=== PATIENT | male | born 1970 | race Caucasian/White ===

== ENCOUNTER 2020-02-20 20:38 | Emergency (ER) | payer SELFPAY ==
[2020-02-20 20:39] VITALS: BP 164/98; BP 186/111; PULSE 86; PULSE 94; RESP 18; RESP 22; TEMP 36.4; O2SAT 97; O2SAT 98; BMI 28.3
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
[2020-02-20] MEDS: Diphth,Pertuss(Acell),Tet Vac 0.5 ML Vial IM (21:23)
[2020-02-20 22:02] VITALS: BP 164/102; PULSE 79; RESP 16; O2SAT 97
== END 2020-02-20 22:03 | disposition home or self-care (01) ==
LOC: ED 21:37
PROVIDERS: Emergency Provider Emergency Medicine; PCP Family Medicine
DX: S16.1XXA Strain of muscle, fascia and tendon at neck level, initial encounter (principal); S29.012A Strain of muscle and tendon of back wall of thorax, initial encounter; S01.112A Laceration without foreign body of left eyelid and periocular area, initial encounter; F10.129 Alcohol abuse with intoxication, unspecified; F17.200 Nicotine dependence, unspecified, uncomplicated; Z23 Encounter for immunization; V43.02XA Car driver injured in collision with other type car in nontraffic accident, initial encounter; Y93.I9 Activity, other involving external motion; Y92.89 Other specified places as the place of occurrence of the external cause; Y99.8 Other external cause status
CPT/HCPCS: 12011; 70450; 72072; 72125; 90471; 90715; 99284

== ENCOUNTER 2020-07-08 06:58 | Emergency (ER) | payer MEDICAID, SELFPAY ==
[2020-07-08 06:59] VITALS: BP 171/106; PULSE 139; RESP 18; TEMP 36.6; O2SAT 95; BMI 27.4
[2020-07-08] MEDS: Ondansetron ODT 4 MG Tablet 8 MG PO (07:22)
[2020-07-08] MEDS: morphine 8 MG/ML Syringe SC (07:23)
--- NOTE | 2020-07-08 07:35 | RAD_ITS ---
STUDY: X-RAY - LEFT SHOULDER REASON FOR EXAM: Left shoulder injury from a fall. TECHNIQUE: 2 view(s) of the shoulder. COMPARISON: None. FINDINGS: There is no obvious dislocation of the glenohumeral articulation. There is a small undersurface osteophyte of the distal clavicle. Normal acromion. There is a comminuted fracture of the proximal humerus with fracture of the greater tuberosity and surgical neck with anterior displacement of the humeral shaft. The soft tissue structures are unremarkable. Normal visualized pulmonary apex. RAD/Shoulder min 2 Views IMPRESSION: Displaced proximal humeral fracture. Electronically Signed: Chago Tierney MD at 8:15 EDT Tel , Service support ,
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
--- NOTE | 2020-07-08 08:14 | CT_ITS ---
STUDY: CT LEFT SHOULDER REASON FOR EXAM: Proximal left humeral fracture, left shoulder injury. TECHNIQUE: The patient was scanned in a multi detector CT scanner. High resolution transaxial imaging was performed without the administration of intravenous contrast material. Sagittal and coronal images were reconstructed. Individualized dose optimization techniques were used for this CT. COMPARISON: Radiographs 07/08/2020. FINDINGS: There is posterior subluxation of the glenohumeral joint (axial images 20-25). Normal glenoid rim, neck and visualized scapula. There is a fracture of the surgical neck of the humerus displaced anteriorly approximately one bone width (axial image 27; sagittal reconstructions 28-34) and a nondisplaced comminuted fracture of the greater tuberosity (axial images 14-19). Normal coracoid process. Normal visualized lateral clavicle. There is incidental vacuum phenomenon in the acromioclavicular articulation (sagittal reconstruction 41) and a small undersurface osteophyte of the distal clavicle. There is a Type I morphology (flat undersurface), with a neutral orientation. There is edema in the subcutis adipose space. CT/Extremity Upper without Contra IMPRESSION: Comminuted fracture of the proximal humerus involving the greater tuberosity and anterior displacement of the surgical neck. Posterior subluxation of the glenohumeral joint. Electronically Signed: Chago Tierney MD at 9:15 EDT Tel , Service support ,
[2020-07-08] MEDS: morphine 10 MG/ML Syringe 8 MG SC (09:24)
--- NOTE | 2020-07-08 10:15 | ED.RN ---
pt reports unable to care for self at home with shoulder and spasms. needed much assistance to apply sling and swath. pt denies having anyone to help at home. he lives alone. consulted case management.
[2020-07-08 10:30] VITALS: BP 167/87; PULSE 90; RESP 16; O2SAT 99
[2020-07-08 11:32] VITALS: BP 124/74; PULSE 92; RESP 16; O2SAT 99
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
== END 2020-07-08 11:33 | disposition home or self-care (01) ==
PROVIDERS: Emergency Provider Emergency Medicine; PCP Family Medicine
DX: S42.202A Unspecified fracture of upper end of left humerus, initial encounter for closed fracture (principal); F17.200 Nicotine dependence, unspecified, uncomplicated; V18.0XXA Pedal cycle driver injured in noncollision transport accident in nontraffic accident, initial encounter; Y93.55 Activity, bike riding; Y92.89 Other specified places as the place of occurrence of the external cause; Y99.8 Other external cause status
CPT/HCPCS: 73030; 73200; 96372; 99284

== ENCOUNTER → 2020-07-14 13:35 | Outpatient (CLI) | payer MEDICAID, SELFPAY ==
[2020-07-08 06:59] VITALS: BMI 27.4
--- NOTE | 2020-07-14 13:37 | EKG12_ITS ---
Test Reason : PRE-OP Blood Pressure : / mmHG Vent. Rate : 100 BPM Atrial Rate : 100 BPM P-R Int : 134 ms QRS Dur : 084 ms QT Int : 348 ms P-R-T Axes : 034 039 028 degrees QTc Int : 448 ms Normal sinus rhythm Normal ECG Confirmed by YOU ROSARIO, JULISA ([id number]), editor producer SUPRIYA TORREZ ([id number]) on 07/15/2020 9:04:29 AM Referred By: Javi Carolina Confirmed By:JULISA ORTA MD
[2020-07-14 14:19] LABS: Hematocrit 36.8 % (40-54); Hemoglobin 12.6 g/dL (13.0-16.5); Mean Corp Hgb Conc 34.2 g/dL (32-36); Mean Corpuscular Hgb 33.7 pg (27.0-32.0); Mean Corpuscular Volume 98.4 fL (80-94); Mean Platelet Vol. 9.4 fl (6.2-12.0); Platelet Count 241 K/mm3 (150-450); RBC Distribution Width CV 14.3 % (11.6-14.6); RBC Distribution Width SD 49.3 fl (35.1-43.9); Red Blood Count 3.74 M/mm3 (4.6-6.2); White Blood Count 12.1 K/mm3 (4.4-11.0)
[2020-07-14 14:31] LABS: Anion Gap 4 (5-15); BUN 8 mg/dL (7-18); BUN/Creat Ratio 11.2 RATIO (10-20); Calcium,Total 9.1 mg/dL (8.5-10.1); Chloride 102 mmol/L (98-107); Creatinine, Serum 0.72 mg/dL (0.70-1.30); EST Glomerular Filtration Rate 124 mL/min (>60); Est Glom Filt Rate - Afr Amer 150 mL/min (>60); Glucose 101 mg/dL (74-106); Potassium 3.7 mmol/L (3.5-5.1); Sodium Level 134 mmol/L (136-145)
== END ==
PROVIDERS: PCP Family Medicine; Referring Provider Physician Assistant; Visit Provider Physician Assistant
DX: Z01.818 Encounter for other preprocedural examination (principal)
CPT/HCPCS: 36415; 80048; 85027; 85610; 93005

== ENCOUNTER 2020-09-17 07:42 | Inpatient (IN) | payer MEDICAID, SELFPAY ==
[2020-09-17] VITALS (7 sets, daily range): BP systolic 153–186; BP diastolic 91–110; PULSE 100–134; RESP 16–22; TEMP 36.6–38.1; O2SAT 93–97; BMI 27.1; BMI 26.6
--- NOTE | 2020-09-17 08:07 | EKG12_ITS ---
Test Reason : Blood Pressure : / mmHG Vent. Rate : 126 BPM Atrial Rate : 126 BPM P-R Int : 134 ms QRS Dur : 078 ms QT Int : 300 ms P-R-T Axes : 071 090 042 degrees QTc Int : 434 ms Sinus tachycardia Rightward axis Borderline ECG Confirmed by ANTONIO ROSARIO, BJORN ([id number]), loan expeditor SUPRIYA TORREZ ([id number]) on 09/22/2020 9:08:32 AM Referred By: SAIRA Confirmed By:EMILY ALVAREZ MD
--- NOTE | 2020-09-17 08:10 | EX.ED.UPPERE ---
HPI History of Present Illness Chief Complaint: Upper Extremity Injury Detail of Chief Complaint: Unable to use his arms normally. Informant: patient Occured/Mechanism Mechanism/Context: No injury and No blunt trauma Onset/Context/Timing Onset: Yesterday Context: Gradual Onset Timing: Continuous Current Severity: Mild Maximum Severity: Mild Associated Symptoms Associated Symptoms: Positive for Weakness; Negative for Parasthesia Narrative Narrative: 50-year-old male denies any significant past medical history. 2 months ago had left shoulder surgery for humerus fracture. States since yesterday morning that is while calling my hands do not work. He denies any falls injury or trauma. He has swelling to his right upper extremity. Patient denies any headache, chest pain, abdominal pain or shortness of breath. He denies any nausea, vomiting or diarrhea. He denies any fevers or chills. Prior similar symptoms: No Recent Illness/Hospitalization: No PFSH PFSH Medical History Fracture of left shoulder Home Medications acetaminophen [Tylenol Extra Strength] 1,000 mg PO Q8H PRN 09/17/20 [History Last Taken 09/16/20] Allergy/AdvReac Type Severity Reaction Status Date / Time No Known Allergies Allergy Verified 02/20/20 21:22 Social History Smoking Status: Current every day smoker tobacco type: cigarettes ROS ROS ED ROS Narrative Denies recent illness. Review of Systems ROS Unobtainable: Denies due to encephalopathy Constitutional Constitutional ED: Denies frequent falls Eyes Eyes: Denies change in vision ENT ENT ED: Denies ear pain or sore throat Cardiovascular Cardiovascular: Denies chest pain Respiratory/Chest Respiratory/Chest: Denies cough or dyspnea Gastrointestinal Gastrointestinal: Denies abdominal pain, diarrhea, nausea or vomiting Genitourinary Genitourinary ED: Denies dysuria or hematuria Musculoskeletal Musculoskeletal: Reports myalgias Integumentary Denies abscess or rash Neurologic Neurologic: Denies headache(s) Psychiatric Psychiatric: Denies depression Endocrine Endocrinology: Denies polyuria Hematologic/Lymphatic Hematologic/Lymphatic: Denies easy bruising Allergic/Immunologic Allergic/Immunologic ED: Denies urticaria EXAM Physical Exam Narrative Exam Narrative: Middle-age male vital signs are stable. He is tachycardic 134. His initial blood pressure is 186/110 is afebrile. H EENT exam dry mucous memories. No facial trauma. No facial droop. Normal speech. Neck nontender. Lungs clear to auscultation bilaterally. Heart tachycardic rate about 115 no murmur. Chest wall nontender. Abdomen soft nontender. Both lower extremities are nontender without edema with normal range of motion. Normal dorsi plantar flexion. Both upper extremities he seems very stiff at the shoulders. There is mild swelling of the right upper extremity. He has equal symmetrical radial pulses. He can open and close his left hand. He seems more weak on the right hand but both are weak. He doesn't raise his hands off the bed. Neurologically is awake and alert. He has weakness to both upper extremities. Const Vital Signs: 09/17/20 07:43 Temperature 98.9 F Temperature Source Oral Pulse Rate 134 H Respiratory Rate 16 Blood Pressure 186/110 H Blood Pressure Mean 135 Pulse Ox 96 Oxygen Delivery Method Room Air Positive well nourished and well developed General Appearance ED: well developed and NAD HEENT HEENT Narrative: Dry mucous membranes. normocephalic and atraumatic; Negative for trauma or tenderness Eyes PERRL and EOMs intact bilaterally Neck full ROM and supple General: Negative for tenderness Chest Wall inspection of chest normal and palpation of chest normal Resp normal respiratory effort and clear to auscultation bilaterally Cardio no murmurs Rate: tachycardic GI non-tender, non-distended and no masses Inspection: Negative for abdominal distention Auscultation: normoactive bowel sounds Palpation: soft; Negative for tender, guarding or rebound tenderness present Back/Spine no CVA tenderness Extremity Extremity Narrative: Bilateral upper extremity weakness and decreased range of motion. Mild swelling right upper extremity. Equal symmetrical radial pulses. Neuro oriented x3 Neuro Narrative: Weakness both upper extremities more so on the right. Sensorium / Orientation: alert, oriented to person, oriented to place and oriented to time; Negative for orientation impaired, lethargic or stuporous Psych mental status grossly normal Skin Lesions: no lesions Rashes: no rashes Trauma: no lacerations or abrasions MDM MDM MDM Narrative Medical decision making narrative: Middle-age male looks older than his stated age. Has weakness to both upper extremities and stiffness in his shoulders with mild swelling on the right. Screening labs are being obtained. He states he has been able to drink water since yesterday was given a liter of normal saline because clinically he appears dehydrated. Lab Data Attestation: I reviewed the patient's lab results. Lab results narrative: Impressions Chest X-Ray 09/17/20 08:25 IMPRESSION: Normal x-ray examination of the chest. Electronically Signed: Hawk Valadez MD at 8:40 EDT , Service support , Venous Doppler Study 09/17/20 09:09 Interpretation Summary No evidence for acute deep venous thrombosis[right] upper extremity with patent and compressible cephalic and basilic veins. Ordering Physician: Eulalio Osorio Referring Physician: Jes Ernandez M.D. Performed By: Chloe Goldberg RVT ? 09/17/20 08:25 Chest 1 View (Portable) [RAD] Stat Laboratory Results 09/17/20 09/17/20 09/17/20 08:15 08:15 08:15 WBC 14.3 H RBC 4.91 Hgb 16.6 H Hct 48.5 MCV 98.8 H MCH 33.8 H MCHC 34.2 RDW Std Deviation 46.3 H RDW Coeff of Shmuel 12.7 Plt Count 226 MPV 9.5 Immature Gran % (Auto) 0.600 Neut % (Auto) 73.3 H Lymph % (Auto) 7.6 L [place] % (Auto) 17.9 H Eos % (Auto) 0.0 Baso % (Auto) 0.6 Absolute Neuts (auto) 10.5 H Absolute Lymphs (auto) 1.08 Nucleated RBC % 0 Diff Path Review May foll D-Dimer Quant (PE/DVT) 2.32 H* Sodium 132 L Potassium 4.3 Chloride 99 Carbon Dioxide 22.0 Anion Gap 11 BUN 10 Creatinine 0.69 L Estim Creat Clear Calc 121.08 Est GFR (MDRD) Af Amer 157 Est GFR (MDRD) Non-Af 129 BUN/Creatinine Ratio 14.5 Glucose 128 H Calcium 9.1 Total Bilirubin 1.10 H AST 30 ALT 43 Alkaline Phosphatase 155 H Total Creatine Kinase 35 L Total Protein 8.7 H Albumin 3.5 Globulin 5.2 H Albumin/Globulin Ratio 0.7 L Urine Color Urine Clarity Urine pH Ur Specific [place] Urine Protein Urine Glucose (UA) Urine Ketones Urine Occult Blood Urine Nitrite Urine Bilirubin Urine Urobilinogen Ur Leukocyte Esterase Urine RBC Urine WBC Ur Squamous Epith Cells Urine Bacteria Urine Mucus 09/17/20 11:15 WBC RBC Hgb Hct MCV MCH MCHC RDW Std Deviation RDW Coeff of Shmuel Plt Count MPV Immature Gran % (Auto) Neut % (Auto) Lymph % (Auto) [place] % (Auto) Eos % (Auto) Baso % (Auto) Absolute Neuts (auto) Absolute Lymphs (auto) Nucleated RBC % Diff Path Review D-Dimer Quant (PE/DVT) Sodium Potassium Chloride Carbon Dioxide Anion Gap BUN Creatinine Estim Creat Clear Calc Est GFR (MDRD) Af Amer Est GFR (MDRD) Non-Af BUN/Creatinine Ratio Glucose Calcium Total Bilirubin AST ALT Alkaline Phosphatase Total Creatine Kinase Total Protein Albumin Globulin Albumin/Globulin Ratio Urine Color Yellow Urine Clarity Sl. Cloudy Urine pH 6.0 Ur Specific [place] 1.020 Urine Protein 30 H Urine Glucose (UA) Normal Urine Ketones 150 A* Urine Occult Blood 10 H Urine Nitrite Negative Urine Bilirubin Negative Urine Urobilinogen 4 H Ur Leukocyte Esterase 500 H Urine RBC 0-5 SEEN Urine WBC 25-50 SEEN Ur Squamous Epith Cells 0-5 SEEN Urine Bacteria 1+ Urine Mucus 1+ Labs: CBC elevated 16,000. Hemoglobin unremarkable. Chest x-ray unremarkable. Due to the elevated white count I added urinalysis. Due to his elevated D-dimer of 2.32 I am obtaining a right upper extremity noninvasive study due to the swelling. Radiography Chest X-Ray - ED: 1 View, Read by ED Physician, Normal, Lungs, Mediastinum, Bony Structures and No Acute Disease Diagnostic Testing: Portable chest x-ray 1 view shows no acute abnormality. Normal cardiac silhouette mediastinum. Interpreted by myself. Rhythm Strip Rhythm Strip: Sinus Tach Rate: 126 Ectopy: None EKG Initial EKG: Attestation: I personally reviewed and interpreted this EKG as follows: Interpretation: Sinus Rhythm, No Acute Injury Pattern and Sinus Tachycardia Comments: Sinus tachycardia rate of 126 no acute signs of OH or ischemia. Prior EKG tracings: not available for review Discharge Plan Triage Chief Complaint: Upper Extremity Injury ED Provider: Eulalio Osorio Dx/Rx/DC Orders Clinical Impression: Urinary tract infection, Weakness Prescriptions: No Action acetaminophen [Tylenol Extra Strength] 500 mg Tablet 1,000 mg PO Q8H PRN (Reason: Pain) RF: 0 Primary Care Provider: Jes Ernandez Referrals: Jes Ernandez MD [Primary Care Provider] - Disposition Disposition: Acute Care Hospital [facility]
[2020-09-17 08:24] LABS: Absolute Lymphocyte Count 1.08 X10^3/uL (0.83-4.51); Absolute Neutrophil Count 10.5 X10^3/uL (2.0-7.7); Basophil# 0.08 X10^3/uL; Basophil% 0.6 % (0-1); Differential Indicated SCAN CRITERIA MET; Hematocrit 48.5 % (40-54); Hemoglobin 16.6 g/dL (13.0-16.5); Lymphocyte # 1.08 X10^3/ul (0.83-4.51); Lymphocyte % 7.6 % (19-41); Mean Corp Hgb Conc 34.2 g/dL (32-36); Mean Corpuscular Hgb 33.8 pg (27.0-32.0); Mean Corpuscular Volume 98.8 fL (80-94); Mean Platelet Vol. 9.5 fl (6.2-12.0); Monocyte# 2.55 X10^3/uL; Monocyte% 17.9 % (0-10); NRBC Flagged by Analyzer 0 % (0-5); Neutrophil # 10.49 X10^3/uL (2.7-7.7); Neutrophil % 73.3 % (47-70); POSITIVE DIFFERENTIAL YES; Platelet Count 226 K/mm3 (150-450); RBC Distribution Width CV 12.7 % (11.6-14.6); RBC Distribution Width SD 46.3 fl (35.1-43.9); Red Blood Count 4.91 M/mm3 (4.6-6.2); White Blood Count 14.3 K/mm3 (4.4-11.0)
--- NOTE | 2020-09-17 08:25 | RAD_ITS ---
STUDY: X-RAY CHEST REASON FOR EXAM: Male, 50 years old. Weakness TECHNIQUE: Single AP portable view of the chest. COMPARISON: None. FINDINGS: EKG electrodes are seen. The lungs are clear and expanded. There is no demonstrated pleural abnormality. Normal size heart. Normal mediastinum and rafa. Normal visualized pulmonary arteries. Normal visualized aortic arch and descending thoracic aorta. Normal visualized thoracic spine. Normal visualized ribs, clavicles, and shoulders. There is no demonstrated abnormality of the visualized soft tissue structures of the upper abdomen. RAD/Chest 1 View (Portable) IMPRESSION: Normal x-ray examination of the chest. Electronically Signed: Hawk Valadez MD at 8:40 EDT , Service support ,
[2020-09-17] MEDS: 0.9% Normal Saline 1,000 ML 999 ML IV ×2 (08:35→13:37)
[2020-09-17 08:37] LABS: ALB/GLOB Ratio 0.7 RATIO (0.9-2.4); AST(SGOT) 30 U/L (15-37); Alanine Aminotransfer ALT/SGPT 43 U/L (16-61); Albumin, Serum 3.5 g/dL (3.2-5.0); Alkaline Phosphatase 155 U/L (45-117); Anion Gap 11 (5-15); BUN 10 mg/dL (7-18); BUN/Creat Ratio 14.5 RATIO (10-20); CPK Total, Creatine Kinase 35 U/L (39-308); Calcium,Total 9.1 mg/dL (8.5-10.1); Chloride 99 mmol/L (98-107); Creatinine, Serum 0.69 mg/dL (0.70-1.30); D-Dimer Quantitative (DVT/PE) 2.32 FEU/ug/m (0.27-0.49); EST Glomerular Filtration Rate 129 mL/min (>60); Est Glom Filt Rate - Afr Amer 157 mL/min (>60); Estimated Creatinine Clearance 121.08 ml/min; Globulin 5.2 g/dL (2.2-4.2); Glucose 128 mg/dL (74-106); Potassium 4.3 mmol/L (3.5-5.1); Protein, Total 8.7 g/dL (6.4-8.2); Sodium Level 132 mmol/L (136-145)
--- NOTE | 2020-09-17 09:09 | VDUE_ITS ---
Reason For Study: Elevated D-dimer Right Proximal Right jugular vein is spontaneous, widely patent, phasic, with no intraluminal echogenicity noted. Right subclavian vein is spontaneous, widely patent, phasic, with no intraluminal echogenicity noted. Right Lower Arm Right radial vein is compressible. Right ulnar vein is compressible. Right Arm Right axillary vein is spontaneous, patent, phasic, competent, compressible and demonstrates augmentation. Right brachial vein is compressible. Right cephalic vein is compressible. Right basilic vein is compressible. Patient Safety Prelim to [place]. VL/Venous Duplex US, Unilateral Interpretation Summary No evidence for acute deep venous thrombosis[right] upper extremity with patent and compressible cephalic and basilic veins. Ordering Physician: Eulalio Osorio Referring Physician: Jes Ernandez M.D. Performed By: Chloe Goldberg RVT ?
[2020-09-17] MEDS: morphine 8 MG/ML Syringe 6 MG IV (09:18)
--- NOTE | 2020-09-17 10:59 | ED.RN ---
rn at bedside to obtain urine sample. pt states he is unable to urinate and requests water. rn to give water and try again later.
[2020-09-17 11:20] LABS: Color, Urine Yellow (Yellow); Glucose, Dipstick Normal (Normal); Leukocyte Esterase-Dipstick 500 /ul (Negative); Nitrite-Dipstick Negative (Negative); Occult Blood-Urine 10 /ul (Negative); Protein-Dipstick 30 mg/dl (Negative); Urine Bilirubin Dipstick Negative (Negative); Urine Clarity Sl. Cloudy (Clear); Urine Urobilinogen 4 mg/dl (Normal)
[2020-09-17 11:23] LABS: Ketone-Dipstick 150 mg/dl (Negative)
[2020-09-17 11:27] LABS: Bacteria 1+ /hpf (None Seen); Mucous, Urine 1+ /hpf (<or=2+); Red Blood Cells-Urine 0-5 SEEN /hpf (0-5); Squamous Epithelial Cells - UA 0-5 SEEN /hpf (0-5); White Blood Cells 25-50 SEEN /hpf (0-5)
--- NOTE | 2020-09-17 13:10 | CT_ITS ---
STUDY: CT CERVICAL SPINE WITHOUT CONTRAST REASON FOR EXAM: Male, 50 years old. Arm weakness RADIATION DOSAGE (If Supplied By Facility): CTDIvol = ( 20.35 ) mGy, DLP = ( 388.85 ) mGycm TECHNIQUE: High resolution transaxial imaging was performed without contrast material. Sagittal and coronal images were reconstructed. Individualized dose optimization techniques were used for this CT. COMPARISON: Comparison is made with prior study dated 02/20/2020. FINDINGS: Normal craniovertebral junction. Normal anterior atlantoaxial articulation. Normal odontoid process. Normal cervical lordosis. Normal vertebral bodies and posterior osseous elements. C2-3: Normal endplates. Normal disc height and morphology. Normal central canal and intervertebral neuroforamina. C3-4: Normal endplates. Normal disc height and morphology. Normal central canal and intervertebral neuroforamina. C4-5: Normal endplates. Normal disc height and morphology. Normal central canal and intervertebral neuroforamina. C5-6: Normal endplates. Normal disc height and morphology. Normal central canal and intervertebral neuroforamina. C6-7: Normal endplates. Normal disc height and morphology. Normal central canal and intervertebral neuroforamina. C7-T1: Normal endplates. Normal disc height and morphology. Normal central canal and intervertebral neuroforamina. Normal visualized soft tissue structures. CT/Spine Cervical without Contras IMPRESSION: Normal unenhanced CT examination of the cervical spine. Electronically Signed: Hawk Valadez MD at 14:02 EDT , Service support ,
--- NOTE | 2020-09-17 13:10 | CT_ITS ---
STUDY: CT BRAIN WITHOUT CONTRAST REASON FOR EXAM: Male, 50 years old. ms change RADIATION DOSAGE (If Supplied By Facility): CTDIvol = ( 38.43 ) mGy, DLP = ( 698.28 ) mGycm TECHNIQUE: Transaxial CT imaging of the brain was performed without administration of intravenous contrast material. Individualized dose optimization techniques were used for this CT. COMPARISON: Comparison is made with prior study dated 02/20/2020. FINDINGS: Normal soft tissue structures. Normal calvarium. Normal size ventricles and extra-axial spaces for the patient''s age. Normal white matter tracts of the cerebral hemispheres. Normal basal ganglia and thalami. Normal brainstem. Normal cerebellum. There is no intracranial hemorrhage. There are no findings of an acute ischemic infarction. Small mucosal polyp or retention cyst along the medial wall of the right maxillary sinus. CT/Brain/Head without Contrast IMPRESSION: Normal unenhanced CT scan of the brain. Electronically Signed: Hawk Valadez MD at 14:00 EDT , Service support ,
[2020-09-17 14:14] LABS: Lactic Acid 1.5 mmol/L (0.4-1.9)
--- NOTE | 2020-09-17 16:18 | PCM.HP.STD ---
Documented by User: Qasim JOSE 09/17/20 16:58 HPI - General General Date of Admission: 09/17/20 Date of Service: 09/17/20 Chief Complaint: Bilteral upper extremity pain HPI Narrative SAHARA BUCK is a 50-year-old male who presents to the ED at [facility] on 09/17/2020 with a chief complaint of bilateral upper extremity pain and right upper extremity swelling. Patient reports that for the past 2 days he has not been able to raise his arms due to extreme pain and stiffness. Patient also reports that his right upper extremity and hand have been swollen, but is unclear about when this started. Patient denies any precipitating events like trauma on either extremities and reports that symptoms seemingly developed without precipitation. It does not appear on examination that patient is limited in upper extremity movement due to neurological symptoms, but seems limited in movement due to pain/stiffness of the upper extremities bilaterally. Review of systems is positive for mild fever and increased urination, although patient denies any other urinary symptoms. Denies chest pain, shortness of breath, palpitations, hemoptysis, sputum production chills, N/V/D. Vital signs in the ED demonstrated hypertension at 166/96, elevated pulse rate at 104 and elevated respirations at 22 breaths/min. Patient currently satting at 94% on room air and is afebrile. CBC demonstrates a leukocytosis at 14,000. D-dimer was elevated at 2.3. BMP demonstrated mild hyponatremia at 132, but is otherwise unremarkable. UA demonstrates yellow cloudy urine with 150 urine ketones, negative nitrites and 500 leukocyte esterase with 1+ bacteria. Ethyl alcohol is pending. Given elevated dimer a venous Doppler of the right upper extremity was obtained and demonstrated no evidence for acute DVT. Chest x-ray is unremarkable and does not demonstrate any acute cardiopulmonary process. Cervical spine CT is unremarkable. Patient was initiated on Rocephin in the emergency department and given morphine for pain. [facility] Medical History Arthritis Fracture of left shoulder Smoker Home Medications acetaminophen [Tylenol Extra Strength] 1,000 mg PO Q8H PRN 09/17/20 [History Last Taken 09/16/20] Allergy/AdvReac Type Severity Reaction Status Date / Time No Known Allergies Allergy Verified 02/20/20 21:22 Family History (Updated 09/17/20 @ 16:30 by Qasim JOSE) Mother Diabetes Father CVA (cerebral vascular accident) Diabetes Surgical History (Updated 09/17/20 @ 16:30 by Qasim JOSE) H/O shoulder surgery Social History (Updated 09/17/20 @ 16:31 by Qasim JOSE) household members: none housing: apartment Smoking Status: Current every day smoker tobacco type: cigarettes Smoking packs per day: 0.5 Smoking cigarettes per day: 10.0 Years smoked: 30 Smoking pack-years: 15.00 alcohol intake: current alcohol intake frequency: a few times a week details: 6 beers/week. ROS Constitutional Constitutional: Reports fever(s); Denies anorexia, change in weight, chills, fatigue, malaise, night sweats, weakness or other Eyes Eyes: Reports blurry vision and other Details: Bilateral eye discharge ; Denies change in eye color, change in vision, discharge from eye(s), double vision, erythema, eye pain or loss of vision ENT HEENT: Denies abnormal hearing, dysphagia, ear pain, epistaxis, headache(s), hearing loss, nasal congestion, nasal discharge, post nasal drip, sinus pressure, sore throat or other Cardiovascular Cardiovascular: Denies chest pain, claudication, dyspnea on exertion, edema, lightheadedness, orthopnea, palpitations, paroxysmal nocturnal dyspnea, rapid heart rate, syncope or other Respiratory/Chest Respiratory/Chest: Denies cough, dyspnea, excessive phlegm production, hemoptysis, productive cough, shortness of breath at rest, shortness of breath with exertion, wheezing or other Gastrointestinal Gastrointestinal: Denies abdominal pain, coffee ground emesis, constipation, diarrhea, dyspepsia, hematemesis, hematochezia, loose stools, melena, nausea, vomiting or other Genitourinary Genitourinary: Reports urinary frequency; Denies burning urination, difficulty urinating, dysuria, hematuria, nocturia, urinary hesitancy, urinary incontinence, urinary urgency or other Musculoskeletal Musculoskeletal: Denies arthralgias, back pain, joint pain, joint stiffness, joint swelling, myalgias, neck pain or other Neurologic Neurologic: Denies abnormal gait, abnormal speech, confusion, disequilibrium, dizziness, focal weakness, headache(s), numbness, paresthesias, seizure-like activity, seizures, syncope, tingling, tremor(s) or other Psychiatric Psychiatric: Denies anxiety, depression, homicidal ideation, suicidal ideation or other Endocrine Endocrinology: Denies change in body appearance, cold intolerance, excessive sweating, heat intolerance, polydipsia, polyuria or other Hematologic/Lymphatic Hematologic/Lymphatic: Denies anemia, easy bleeding, easy bruising, lymphadenopathy or other Allergic/Immunologic Allergic/Immunologic: Denies rhinitis, hives, eczemia, asthma or other Vital Signs Vital Signs Vital Signs: 09/17/20 07:43 09/17/20 10:47 09/17/20 12:42 Temperature 98.9 F Temperature Source Oral Pulse Rate 134 H 123 H 104 H Respiratory Rate 16 19 H 22 H Blood Pressure 186/110 H 181/94 H 166/96 H Blood Pressure Mean 135 123 119 Pulse Ox 96 93 94 Oxygen Delivery Method Room Air Room Air Room Air Weight Weight: 173 lb 1.006 oz Body Mass Index (BMI) 27.1 Physical Exam Const alert and oriented x3 General Appearance: cooperative HEENT normocephalic, head/scalp atraumatic and hearing grossly normal bilaterally Eyes Eyes Narrative: Eyes are injected bilaterally with bilateral eye discharge. Neck no lymphadenopathy, supple and no JVD Resp normal respiratory effort, no retractions and no use of accessory muscles Auscultation: wheezes Cardio no murmurs and no JVD Rate: tachycardic GI normal to inspection, nondistended, normoactive bowel sounds, soft to palpation and non-tender Extremity normal to inspection, full ROM and no clubbing, cyanosis or edema Skin no rashes or lesions noted, no wounds, skin turgor normal and no jaundice Neuro CN's II-XII intact bilaterally Neuro Narrative: Upper extremity examination limited due to pain/stiffness, no other focal neurological deficits noted. Psych affect normal Results Lab / Micro Data Result Diagrams: 09/17/20 08:15 09/17/20 08:15 Labs: Laboratory Results - last 24 hr 09/17/20 08:15: WBC 14.3 H, RBC 4.91, Hgb 16.6 H, Hct 48.5, MCV 98.8 H, MCH 33.8 H, MCHC 34.2, RDW Std Deviation 46.3 H, RDW Coeff of Shmuel 12.7, Plt Count 226, MPV 9.5, Immature Gran % (Auto) 0.600, Neut % (Auto) 73.3 H, Lymph % (Auto) 7.6 L, [place] % (Auto) 17.9 H, Eos % (Auto) 0.0, Baso % (Auto) 0.6, Absolute Neuts (auto) 10.5 H, Absolute Lymphs (auto) 1.08, Nucleated RBC % 0, Diff Path Review June09/17/20 08:15: D-Dimer Quant (PE/DVT) 2.32 H* 09/17/20 08:15: Sodium 132 L, Potassium 4.3, Chloride 99, Carbon Dioxide 22.0, Anion Gap 11, BUN 10, Creatinine 0.69 L, Estim Creat Clear Calc 121.08, Est GFR (MDRD) Af Amer 157, Est GFR (MDRD) Non-Af 129, BUN/Creatinine Ratio 14.5, Glucose 128 H, Calcium 9.1, Total Bilirubin 1.10 H, AST 30, ALT 43, Alkaline Phosphatase 155 H, Total Creatine Kinase 35 L, Total Protein 8.7 H, Albumin 3.5, Globulin 5.2 H, Albumin/Globulin Ratio 0.7 L 09/17/20 11:15: Urine Color Yellow, Urine Clarity Sl. Cloudy, Urine pH 6.0, Ur Specific [place] 1.020, Urine Protein 30 H, Urine Glucose (UA) Normal, Urine Ketones 150 A*, Urine Occult Blood 10 H, Urine Nitrite Negative, Urine Bilirubin Negative, Urine Urobilinogen 4 H, Ur Leukocyte Esterase 500 H, Urine RBC 0-5 SEEN, Urine WBC 25-50 SEEN, Ur Squamous Epith Cells 0-5 SEEN, Urine Bacteria 1+, Urine Mucus 1+ 09/17/20 13:40: Lactic Acid 1.5 Rhythm Strip Rhythm Strip: Sinus Tach Rate: 126 Ectopy: None Radiology Impression Chest X-Ray 09/17/20 08:25 IMPRESSION: Normal x-ray examination of the chest. Electronically Signed: Hawk Valadez MD at 8:40 EDT , Service support , Venous Doppler Study 09/17/20 09:09 Interpretation Summary No evidence for acute deep venous thrombosis[right] upper extremity with patent and compressible cephalic and basilic veins. Ordering Physician: Eulalio Osorio Referring Physician: Jes Ernandez M.D. Performed By: Chloe Goldebrg, T ? Brain CT 09/17/20 13:10 IMPRESSION: Normal unenhanced CT scan of the brain. Electronically Signed: Hawk Valadez MD at 14:00 EDT , Service support , Cervical Spine CT 09/17/20 13:10 IMPRESSION: Normal unenhanced CT examination of the cervical spine. Electronically Signed: Hawk Valadez MD at 14:02 EDT , Service support , Assessment & Plan Assessment/Plan (1) Urinary tract infection: (2) Immobility: (3) Failure to thrive: PLAN: Patient is a 50-year-old male who presents to the ED at [facility] on 09/17/2020 with a chief complaint of bilateral upper extremity weakness/pain with right upper extremity swelling. Patient's vital signs in the ED demonstrated a tachycardia above 120 bpm, elevated respirations at 20 breaths/min, a leukocytosis on CBC and an abnormal UA. Patient will be admitted for management of UTI and for PT/OT eval for failure to thrive . 1) Sepsis with Urinary Tract infection Patient meets SIRS criteria for sepsis with tachycardia, elevated respiratory rate and a leukocytosis of 14,000 with unknown upper extremity swelling. Lactic acid is within normal limits. other vital signs stable and patient is afebrile. Currently satting 93% on room air. UA obtained in the ED demonstrated yellow cloudy urine with positive ketones, negative nitrites, 500 leukocyte esterase and 1+ bacteria. Patient denies any pain or difficulty with urination, however does endorse increased urination that is dark. Plan: Placed on MS 3 for medical observation, continue Rocephin initiated in the ED, obtain urine culture. 2) Bilateraly shoulder immobility Patient reports a 2-day history of not being able to raise arms bilaterally due to pain and stiffness. Patient does not appear to demonstrate any weakness of the upper extremities, however does seem limited by pain. Patient does not demonstrate any focal neurological deficits. Brain and cervical spine CT are unremarkable. Venous Doppler of the right upper extremity obtained for right upper extremity swelling, and did not demonstrate any evidence of acute DVT. Plan; PT/OT eval ordered, case management consult ordred for possible placment, Tylenol as needed for pain. 3) elevated D-dimer D-dimer obtained in the ED due to right upper extremity swelling, 2.32. Venous Doppler of the right upper extremity did not demonstrate any evidence for DVT. Patient is without chest pain, shortness of breath, cough, lower extremity swelling/pain, hemoptysis. Plan; continue to monitor, DVT prophylaxis as below. 3) failure to thrive As above. 4) tobacco abuse Patient endorses smoking half pack per day for 30 years. Cessation encouraged. Plan; NicoDerm patch ordered. CODE STATUS: Full code Vaccine status: Fully vaccinated for COVID-19 DVT prophylaxis - Lovenox Patient seen by Qasim Schwab PA-C, under the supervision of Dr. Radford. Documented by User: Dr. Fidencio Radford DO 09/17/20 19:01 HPI - General General Date of Admission: 09/17/20 PFSH Medical History Arthritis Fracture of left shoulder Smoker Home Medications acetaminophen [Tylenol Extra Strength] 1,000 mg PO Q8H PRN 09/17/20 [History Last Taken 09/16/20] Allergy/AdvReac Type Severity Reaction Status Date / Time No Known Allergies Allergy Verified 02/20/20 21:22 Family History (Updated 09/17/20 @ 16:30 by Qasim JOSE) Mother Diabetes Father CVA (cerebral vascular accident) Diabetes Surgical History (Updated 09/17/20 @ 16:30 by Qasim JOSE) H/O shoulder surgery Social History (Updated 09/17/20 @ 16:31 by Qasim JOSE) household members: none housing: apartment Smoking Status: Current every day smoker tobacco type: cigarettes Smoking packs per day: 0.5 Smoking cigarettes per day: 10.0 Years smoked: 30 Smoking pack-years: 15.00 alcohol intake: current alcohol intake frequency: a few times a week details: 6 beers/week. Results Lab / Micro Data Result Diagrams: 09/17/20 08:15 09/17/20 08:15 Charges/Coding Addendum Addendum: Patient was seen and examined independently of Qasim Schwab, he came to the ER today complaining of inability to carry out ADLs with his left and right arms due to inability to flex his elbows without pain and move the shoulders without pain. Patient stated that this had been bothering him for several days but he had not sought medical attention because he believed it would improve spontaneously, today it was very severe and he came to the ER for evaluation. Patient is also having some dysuria. On examination he appeared in good health and spirits. Vital signs as documented. Skin warm and dry and without overt rashes. Neck without JVD, neck was supple, trachea midline, thyroid was normal. Lungs clear bilaterally, normal air movement was noted. Heart exam notable for regular rhythm, normal sounds and absence of murmurs, rubs or gallops. Abdomen unremarkable and without evidence of organomegaly, masses, or abdominal aortic enlargement. Bowel sounds are present, abdomen is not distended. Extremities-patient's elbow and shoulder areas were tender to palpation, patient was not able to raise his arms above the level of his shoulders due to extreme pain in his shoulders and elbows. Elbow areas appear to be warm and his wrist areas also appear to be warm to palpation.. Neuro: Cranial nerves II through XII are grossly intact, no focal motor deficits were noted, sensation to light touch and pinprick intact, motor exam 5/5 throughout. Psych: Patient is alert and oriented x3, he does not appear anxious or depressed, he does not appear agitated. It appears to me that the patient may have a flareup of some undiagnosed rheumatological disorder, I have ordered additional labs on the patient and decided to place the patient on IV Decadron. Patient will be treated for acute cystitis with IV antibiotics. I will reevaluate the patient tomorrow. I have reviewed Qasim Schwab's history and physical including his medical assessment and plan of care and endorse it. Visit Charges OBSV E&M: 80357 Initial observation care L3
[2020-09-17] MEDS: Ceftriaxone 1 GM/50 ML BAG IV (16:21)
[2020-09-17 16:41] LABS: Lactic Acid 1.1 mmol/L (0.4-1.9)
[2020-09-17 17:07] LABS: Alcohol, Blood (Medical)-Serum < 3.0 mg/dL
[2020-09-17 19:49] LABS: Erythrocyte Sedimentation Rate 58 mm/hr (0-20)
[2020-09-17] MEDS: 0.9% Normal Saline 1,000 ML 150 ML IV (19:49)
[2020-09-17] MEDS: oxyCODONE 5 MG Tablet 10 MG PO (19:58)
[2020-09-17 20:02] LABS: Rheumatoid Factor < 10.0 IU/mL (<15); Uric Acid 4.6 mg/dL (3.5-7.2)
[2020-09-17] MEDS: dexAMETHasone 4 MG/ML Vial IV (23:49)
[2020-09-18] VITALS (7 sets, daily range): BP systolic 145–160; BP diastolic 77–87; PULSE 78–90; RESP 12–20; TEMP 36.5–37.6; O2SAT 94–98
[2020-09-18] MEDS: 0.9% Normal Saline 1,000 ML 150 ML IV ×4 (02:33→23:14)
[2020-09-18] MEDS: dexAMETHasone 4 MG/ML Vial IV ×4 (05:31→23:19)
[2020-09-18 06:15] LABS: Absolute Lymphocyte Count 0.46 X10^3/uL (0.83-4.51); Absolute Neutrophil Count 9.9 X10^3/uL (2.0-7.7); Basophil# 0.03 X10^3/uL; Basophil% 0.3 % (0-1); Hematocrit 42.8 % (40-54); Hemoglobin 14.6 g/dL (13.0-16.5); Lymphocyte # 0.46 X10^3/ul (0.83-4.51); Mean Corp Hgb Conc 34.1 g/dL (32-36); Mean Corpuscular Hgb 34.4 pg (27.0-32.0); Mean Corpuscular Volume 100.7 fL (80-94); Monocyte# 0.97 X10^3/uL; Monocyte% 8.5 % (0-10); NRBC Flagged by Analyzer 0 % (0-5); Neutrophil # 9.87 X10^3/uL (2.7-7.7); Neutrophil % 86.6 % (47-70); POSITIVE DIFFERENTIAL YES; Platelet Count 191 K/mm3 (150-450); RBC Distribution Width CV 12.2 % (11.6-14.6); RBC Distribution Width SD 45.6 fl (35.1-43.9); Red Blood Count 4.25 M/mm3 (4.6-6.2); White Blood Count 11.4 K/mm3 (4.4-11.0)
[2020-09-18 06:24] LABS: Differential Indicated SCAN CRITERIA MET
[2020-09-18 06:50] LABS: Anion Gap 8 (5-15); BUN 9 mg/dL (7-18); BUN/Creat Ratio 17.7 RATIO (10-20); Calcium,Total 8.9 mg/dL (8.5-10.1); Chloride 101 mmol/L (98-107); Creatinine, Serum 0.51 mg/dL (0.70-1.30); EST Glomerular Filtration Rate 184 mL/min (>60); Est Glom Filt Rate - Afr Amer 222 mL/min (>60); Estimated Creatinine Clearance 163.81 ml/min; Glucose 129 mg/dL (74-106); Potassium 4.3 mmol/L (3.5-5.1); Sodium Level 132 mmol/L (136-145)
[2020-09-18] MEDS: Ceftriaxone 1 GM/50 ML BAG IV (10:03)
[2020-09-18] MEDS: Enoxaparin 40 MG/0.4 ML Syringe SC (10:07)
--- NOTE | 2020-09-18 11:24 | PN.HOSP_ITS ---
Documented by User: Astrid Gupta NP, [employer] 09/18/20 11:39 Subjective Subjective Patient seen and examined. Reports right upper extremity weakness has improved. Reports right eye irritation and purulent drainage. States left arm remains weak however he has had weakness on that side since recent shoulder surgery. Denies fever, chills. Denies new complaints. Objective Data Objective Data Vital Signs: Vital Signs Temp Pulse Resp BP Pulse Ox 99.6 F H 90 14 155/77 H 94 09/18/20 07:24 09/18/20 08:05 09/18/20 08:05 09/18/20 07:24 09/18/20 08:05 Oxygen Delivery Method Room Air Weight: 170 lb Body Mass Index (BMI) 26.6 Intake & Output: Intake and Output for Last 24 Hours 09/16/20 09/17/20 09/18/20 23:59 23:59 23:59 Intake Total 2400 / 2400 2050 / 2050 Output Total 250 / 250 Balance 2400 / 2400 1800 / 1800 Lab / Micro Data Result Diagrams: 09/18/20 05:45 09/18/20 05:45 Labs: Laboratory Results - last 24 hr 09/17/20 11:15: Urine RBC 0-5 SEEN, Urine WBC 25-50 SEEN, Ur Squamous Epith Cells 0-5 SEEN, Urine Bacteria 1+, Urine Mucus 1+ 09/17/20 13:40: Lactic Acid 1.5 09/17/20 16:00: Ethyl Alcohol < 3.0 09/17/20 16:00: Lactic Acid 1.1 09/17/20 18:15: ESR 58 H 09/17/20 18:15: Uric Acid 4.6, C-React Prot Ext Range 239.00 H, Rheumatoid Factor < 10.0 09/18/20 05:45: WBC 11.4 H, RBC 4.25 L, Hgb 14.6, Hct 42.8, MCV 100.7 H, MCH 34.4 H, MCHC 34.1, RDW Std Deviation 45.6 H, RDW Coeff of Shmuel 12.2, Plt Count 191, MPV 10.0, Immature Gran % (Auto) 0.600, Neut % (Auto) 86.6 H, Lymph % (Auto) 4.0 L, [place] % (Auto) 8.5, Eos % (Auto) 0.0, Baso % (Auto) 0.3, Absolute Neuts (auto) 9.9 H, Absolute Lymphs (auto) 0.46 L, Nucleated RBC % 0 09/18/20 05:45: Sodium 132 L, Potassium 4.3, Chloride 101, Carbon Dioxide 23.0, Anion Gap 8, BUN 9, Creatinine 0.51 L, Estim Creat Clear Calc 163.81, Est GFR (MDRD) Af Amer 222, Est GFR (MDRD) Non-Af 184, BUN/Creatinine Ratio 17.7, Glucose 129 H, Calcium 8.9 Radiography Diagnostic Testing: Radiology Impression Brain CT 09/17/20 13:10 IMPRESSION: Normal unenhanced CT scan of the brain. Electronically Signed: Hawk Valadez MD at 14:00 EDT , Service support , Cervical Spine CT 09/17/20 13:10 IMPRESSION: Normal unenhanced CT examination of the cervical spine. Electronically Signed: Hawk Valadez MD at 14:02 EDT , Service support , Rhythm Strip Rhythm Strip: Sinus Tach Rate: 126 Ectopy: None Physical Exam Const alert, oriented x3 and no apparent distress Orientation / Consciousness: awake, oriented to person, oriented to place and oriented to time HEENT normocephalic and moist oral mucous membranes Eyes PERRL and EOMs intact bilaterally Eyes Narrative: Right eye conjunctival erythema, purulent discharge. Neck no lymphadenopathy Resp normal respiratory effort and clear to auscultation bilaterally Cardio regular rate, regular rhythm and no murmurs Peripheral Pulses: pulses 2+ throughout GI normal to inspection, nondistended, normoactive bowel sounds, non-tender and non-distended Extremity normal to inspection Extremity Narrative: Right upper extremity weakness improved, left upper extremity chronic mucus from prior shoulder surgery. Skin no rashes or lesions noted Lesions: no lesions Rashes: no rashes Trauma: no lacerations or abrasions Neuro CN's II-XII intact bilaterally, no focal motor deficits, no sensory deficits noted and deep tendon reflexes 2+ bilaterally Psych mental status grossly normal and affect normal Assessment & Plan Assessment/Plan (1) Weakness: (2) Failure to thrive: PLAN: 1. Sepsis secondary to acute cystitis-IV Rocephin pending urine culture. Blood culture pending. 2. Bilateral upper extremity weakness, joint pain and swelling- unclear etiology. Brain and cervical spine imaging unremarkable. Duplex ultrasound right upper extremity negative. PT/OT. As needed pain regimen. ID consulted for further input. Improving with IV Decadron. CRP 239. Immunology labs pending. 3. Right eye conjunctivitis-ophthalmic erythromycin ordered. Warm compresses. 4. Tobacco dependence- encouraged cessation. DVT prophylaxis- Lovenox sc This patient was seen by TELLO Valadez under the supervision of Dr. Radford. Documented by User: Dr. Fidencio Radford, 09/18/20 16:23 Objective Data Lab / Micro Data Result Diagrams: 09/18/20 05:45 09/18/20 05:45 Charges/Coding Addendum Addendum: Patient was seen and examined independently of Astrid Gupta today, his shoulder, wrist, and elbow pain is markedly better today, I believe this is most probably secondary to his IV Decadron that he is receiving. I talked briefly with infectious diseases today, they are not sure that the patient actually has a urinary tract infection. I have decided to leave the patient on antibiotics for now and recheck his urine and blood culture results tomorrow. On examination he appeared in good health and spirits. Vital signs as documented. Skin warm and dry and without overt rashes. Neck without JVD, neck was supple, trachea midline, thyroid was normal. Lungs clear bilaterally, normal air movement was noted. Heart exam notable for regular rhythm, normal sounds and absence of murmurs, rubs or gallops. Abdomen unremarkable and without evidence of organomegaly, masses, or abdominal aortic enlargement. Bowel sounds are present, abdomen is not distended. Extremities there is mild edema noted over both arms, no cyanosis was noted, no clubbing was noted. Patient has limited range of motion in the shoulders bilaterally and to a lesser extent in the wrists and elbows. Neuro: Cranial nerves II through XII are grossly intact, no focal motor deficits were noted, sensation to light touch and pinprick intact, motor exam 5/5 throughout. Psych: Patient is alert and oriented x3, he does not appear anxious or depressed, he does not appear agitated. I have reviewed Astrid Gupta's progress note including her medical assessment and plan of care and endorse it. Visit Charges Inpatient E&M: 35647 Subs Hosp L2
[2020-09-18] MEDS: 0.9% Saline Lock 10 ML Syringe IV ×2 (12:52→23:19)
[2020-09-18 13:34] LABS: Pathologist Review Reviewed
[2020-09-18] MEDS: Erythromycin Base 1 OPTH.TUBE 1 APPLIC RIGHT EYE ×3 (14:03→21:23)
--- NOTE | 2020-09-18 14:23 | PCM.CONS.GEN ---
Assessment & Plan Assessment/Plan (1) Weakness: PLAN: BUE pain, stiffness, acute onset, now rapidly improved. UA abnormal but no urinary symptoms. BUE pain/stiffness nearly resolved. Ok for d/c home off of abx from ID perspective. Will follow as needed, thank you, d/w Dr. Radford HPI Consult Data Date of Consult: 09/18/20 HPI Narrative HPI Narrative: SAHARA BUCK, is a 50 M with recent L shoulder surgery, presented with 2 days of progressive BUE pain, weakness. Reports associated R wrist swelling. Is covid vaccinated, no sick contacts, no issues with L shoulder incision healing, no travel, no bug/tick bites. No prior h/o joint pain like this. No fever or chills. No vision changes, no dysuria, no urine changes. No recent illnesses. Came to ED, admitted on ceftriaxone, started dex, feeling almost back to normal now. Full ROS performed and neg except as noted above PFSH Medical History Arthritis Fracture of left shoulder Smoker Home Medications acetaminophen [Tylenol Extra Strength] 1,000 mg PO Q8H PRN 09/17/20 [History Last Taken 09/16/20] Allergy/AdvReac Type Severity Reaction Status Date / Time No Known Allergies Allergy Verified 02/20/20 21:22 Family History (Updated 09/17/20 @ 16:30 by Qasim JOSE) Mother Diabetes Father CVA (cerebral vascular accident) Diabetes Surgical History (Updated 09/17/20 @ 16:30 by Qasim JOSE) H/O shoulder surgery Social History (Updated 09/17/20 @ 16:31 by Qasim JOSE) household members: none housing: apartment Smoking Status: Current every day smoker tobacco type: cigarettes Smoking packs per day: 0.5 Smoking cigarettes per day: 10.0 Years smoked: 30 Smoking pack-years: 15.00 alcohol intake: current alcohol intake frequency: a few times a week details: 6 beers/week. Physical Exam Const alert, oriented x3 and no apparent distress General Appearance: cooperative Exam Limitations: no limitations HEENT normocephalic and head/scalp atraumatic Eyes PERRL and EOMs intact bilaterally Neck supple and No nodes Resp normal air movement and clear to auscultation bilaterally Cardio regular rate and regular rhythm GI normal to inspection, nondistended, normoactive bowel sounds Extremity no clubbing, cyanosis or edema Skin no rashes or lesions noted Neuro CN's II-XII intact bilaterally Lab / Micro Data Result Diagrams: 09/18/20 05:45 09/18/20 05:45 Labs: Laboratory Results - last 24 hr 09/17/20 08:15: Diff Path Review Reviewed 09/17/20 16:00: Ethyl Alcohol < 3.0 09/17/20 16:00: Lactic Acid 1.1 09/17/20 18:15: ESR 58 H 09/17/20 18:15: Uric Acid 4.6, C-React Prot Ext Range 239.00 H, Rheumatoid Factor < 10.0 09/18/20 05:45: WBC 11.4 H, RBC 4.25 L, Hgb 14.6, Hct 42.8, MCV 100.7 H, MCH 34.4 H, MCHC 34.1, RDW Std Deviation 45.6 H, RDW Coeff of Shmuel 12.2, Plt Count 191, MPV 10.0, Immature Gran % (Auto) 0.600, Neut % (Auto) 86.6 H, Lymph % (Auto) 4.0 L, [place] % (Auto) 8.5, Eos % (Auto) 0.0, Baso % (Auto) 0.3, Absolute Neuts (auto) 9.9 H, Absolute Lymphs (auto) 0.46 L, Nucleated RBC % 0 09/18/20 05:45: Sodium 132 L, Potassium 4.3, Chloride 101, Carbon Dioxide 23.0, Anion Gap 8, BUN 9, Creatinine 0.51 L, Estim Creat Clear Calc 163.81, Est GFR (MDRD) Af Amer 222, Est GFR (MDRD) Non-Af 184, BUN/Creatinine Ratio 17.7, Glucose 129 H, Calcium 8.9 Rhythm Strip Rhythm Strip: Sinus Tach Rate: 126 Ectopy: None
--- NOTE | 2020-09-18 14:45 | NURSING ---
This RN reviewed SN charting and observed SN during med pass
[2020-09-19 05:28] VITALS: BP 164/83; PULSE 69; RESP 16; TEMP 36.4; O2SAT 99
[2020-09-19] MEDS: 0.9% Saline Lock 10 ML Syringe IV (05:30)
[2020-09-19] MEDS: 0.9% Normal Saline 1,000 ML 150 ML IV (05:30)
[2020-09-19] MEDS: dexAMETHasone 4 MG/ML Vial IV (05:30)
[2020-09-19] MEDS: Enoxaparin 40 MG/0.4 ML Syringe SC (07:41)
[2020-09-19] MEDS: Erythromycin Base 1 OPTH.TUBE 1 APPLIC RIGHT EYE (07:42)
[2020-09-19] MEDS: Ceftriaxone 1 GM/50 ML BAG IV (07:45)
[2020-09-19 08:40] VITALS: BP 159/80; PULSE 52; RESP 16; TEMP 36.5; O2SAT 98
--- NOTE | 2020-09-19 10:14 | PCM.DC ---
Discharge Instructions Diet Discharge Diet: No restrictions Activity Discharge Activity: Return to Normal Activity Dressing / Incision Call your doctor if you observe: Fever of 101 or Higher, Shortness of breath, Dizziness and Chest pain Follow Up Care Test Results: Test results from this visit will be discussed in further detail at your follow-up appointment, if applicable. Discharge Plan Admission Admit Date/Time: 09/17/20 15:37 Primary Reason for Your Visit: Upper extremity weakness Attending Provider: Fidencio Radford Primary Care Provider: Jes Ernandez Consulting Providers: Farhan Lee Discharge Orders/Prescriptions Prescriptions: New erythromycin 5 mg/gram (0.5 %) Ointment 1 applic RIGHT EYE 4X/DAY 6 Days Qty: 0 RF: 0 prednisone 10 mg tablet See Taper mg PO DAILY Qty: 30 RF: 0 Continued acetaminophen [Tylenol Extra Strength] 500 mg Tablet 1,000 mg PO Q8H PRN (Reason: Pain) Qty: 60 RF: 0 Referrals / Follow Up: Jes Ernandez MD [Primary Care Provider] - In 1 Week Disposition Disposition (needs filled in before D/C Order can be placed): Home, Self Care
--- NOTE | 2020-09-19 10:18 | PCM.DC.SUM ---
Documented by User: Astrid Gupta NP, NUCLEAR POWER REACTOR OPERATOR-C 09/19/20 10:26 Providers Date of Admission: 09/17/20 Date of Discharge: 09/19/20 Primary Care Physician: Dr. Jes Ernandez MD Consultations 09/18/20 08:26 Consult: Infectious Disease Routine Consulting Provider: Farhan Lee Reason for Consult: ? joint infection EMERGENT Consult: No MD Notified: Yes Date Notified: 09/18/20 Time Notified: 08:26 Method of Notification: Verbal Reason For Visit: WEAKNESS, ARM PAIN Diagnosis Discharge Diagnosis (1) Weakness: Status: Acute Code(s): R53.1 - Weakness Medications at Discharge Home Medications acetaminophen [Tylenol Extra Strength] 1,000 mg PO Q8H PRN #60 tab 09/19/20 erythromycin 1 applic RIGHT EYE 4X/DAY 6 Days #0 g 09/19/20 prednisone See Taper PO DAILY #30 tab 09/19/20 Hospital Course Operations None Procedures None Summary of Care Provided Minutes Spent on Discharge: 35 Hospital Course: Patient is a 50-year-old male admitted 09/17/2020 due to bilateral upper extremity pain and weakness. 1. Sepsis secondary to acute cystitis-IV Rocephin x 3 doses. Discontinue further antibiotics. 2. Bilateral upper extremity weakness, joint pain and swelling- unclear etiology. Brain and cervical spine imaging unremarkable. Duplex ultrasound right upper extremity negative. ID consulted for further input. Recommend discontinuation of further antibiotics at discharge. Improved with IV Decadron. CRP 239. Immunology labs pending at discharge. Discharged on prednisone taper. Follow-up with PCP in 1 week. 3. Right eye conjunctivitis-ophthalmic erythromycin x1 week. Warm compresses. 4. Tobacco dependence- encouraged cessation. 5. Elevated blood pressure without history of hypertension-blood pressure consistently 150-160 systolically during admission. Recommend further blood pressure monitoring at discharge with follow-up with PCP, may need addition of antihypertensive if blood pressure remains above goal with additional monitoring. Physical Exam Const alert, oriented x3 and no apparent distress Orientation / Consciousness: awake, oriented to person, oriented to place and oriented to time HEENT normocephalic and moist oral mucous membranes Eyes PERRL and EOMs intact bilaterally Eyes Narrative: Right eye conjunctival erythema, purulent discharge. Neck no lymphadenopathy Resp normal respiratory effort and clear to auscultation bilaterally Cardio regular rate, regular rhythm and no murmurs Peripheral Pulses: pulses 2+ throughout GI normal to inspection, nondistended, normoactive bowel sounds, non-tender and non-distended Extremity normal to inspection Extremity Narrative: Right upper extremity weakness improved, left upper extremity chronic mucus from prior shoulder surgery. Skin no rashes or lesions noted Lesions: no lesions Rashes: no rashes Trauma: no lacerations or abrasions Neuro CN's II-XII intact bilaterally, no focal motor deficits, no sensory deficits noted and deep tendon reflexes 2+ bilaterally Psych mental status grossly normal and affect normal Patient seen and examined prior to discharge. Physical assessment as noted above. Patient is stable for discharge with follow up recommendations as noted above. This patient was seen by TELLO Valadez under the supervision of Dr. Radford. Weight / BMI Weight Weight: 170 lb Body Mass Index (BMI) 26.6 ABG / Lab / Microbiology Data Result Diagrams: 09/18/20 05:45 09/18/20 05:45 Laboratory: Laboratory Results - last 24 hr 09/17/20 08:15: Diff Path Review Reviewed D/C Instructions Discharge Diet: No restrictions Call your doctor if you observe: Fever of 101 or Higher, Shortness of breath, Dizziness and Chest pain Meaningful Use Info Meaningful Use Diagnoses (Choose all that apply): None applicable Discharge Plan Admission Admit Date/Time: 09/17/20 15:37 Primary Reason for Your Visit: Upper extremity weakness Attending Provider: Fidencio Radford Primary Care Provider: Jes Ernandez Consulting Providers: Farhan Lee Discharge Orders/Prescriptions Prescriptions: New erythromycin 5 mg/gram (0.5 %) Ointment 1 applic RIGHT EYE 4X/DAY 6 Days Qty: 0 RF: 0 prednisone 10 mg tablet See Taper mg PO DAILY Qty: 30 RF: 0 Continued acetaminophen [Tylenol Extra Strength] 500 mg Tablet 1,000 mg PO Q8H PRN (Reason: Pain) Qty: 60 RF: 0 Referrals / Follow Up: Jes Ernandez MD [Primary Care Provider] - In 1 Week Disposition Disposition (needs filled in before D/C Order can be placed): Home, Self Care Documented by User: Dr. Fidencio Radford DO 09/20/20 08:32 Providers Date of Admission: 09/17/20 Reason For Visit: WEAKNESS, ARM PAIN Medications at Discharge Home Medications acetaminophen [Tylenol Extra Strength] 1,000 mg PO Q8H PRN #60 tab 09/19/20 erythromycin 1 applic RIGHT EYE 4X/DAY 6 Days #0 g 09/19/20 prednisone See Taper PO DAILY #30 tab 09/19/20 ABG / Lab / Microbiology Data Result Diagrams: 09/18/20 05:45 09/18/20 05:45 Discharge Plan Admission Admit Date/Time: 09/17/20 15:37 Primary Reason for Your Visit: Upper extremity weakness Attending Provider: Fidencio Radford Primary Care Provider: Jes Ernandez Consulting Providers: Farhan Lee Discharge Orders/Prescriptions Prescriptions: New erythromycin 5 mg/gram (0.5 %) Ointment 1 applic RIGHT EYE 4X/DAY 6 Days Qty: 0 RF: 0 prednisone 10 mg tablet See Taper mg PO DAILY Qty: 30 RF: 0 Continued acetaminophen [Tylenol Extra Strength] 500 mg Tablet 1,000 mg PO Q8H PRN (Reason: Pain) Qty: 60 RF: 0 Referrals / Follow Up: Jes Ernandez MD [Primary Care Provider] - In 1 Week Disposition Disposition (needs filled in before D/C Order can be placed): Home, Self Care Charges/Coding Addendum Addendum: Patient was seen and examined today independently of Astrid Gupta, his joint discomfort and range of motion have greatly improved. The exact etiology of the patient's joint problems are unknown at this time, further rheumatological work-up is pending at the time of his discharge today. On examination he appeared in good health and spirits. Vital signs as documented. Skin warm and dry and without overt rashes. Neck without JVD, neck was supple, trachea midline, thyroid was normal. Lungs clear bilaterally, normal air movement was noted. Heart exam notable for regular rhythm, normal sounds and absence of murmurs, rubs or gallops. Abdomen unremarkable and without evidence of organomegaly, masses, or abdominal aortic enlargement. Bowel sounds are present, abdomen is not distended. Extremities nonedematous, no cyanosis was noted, no clubbing was noted. Neuro: Cranial nerves II through XII are grossly intact, no focal motor deficits were noted, sensation to light touch and pinprick intact, motor exam 5/5 throughout. Psych: Patient is alert and oriented x3, he does not appear anxious or depressed, he does not appear agitated. Patient appears stable for discharge, I have reviewed Astrid Gupta's discharge summary including her medical assessment and plan of care and endorse it. Visit Charges Inpatient E&M: 51751 Disch Hosp
--- NOTE | 2020-09-19 10:33 | CASEMGMT ---
SHRUTHI CM in to pt room for assessment. Pt has left. Per report, pt was going to [facility] for therapy and was planning to resume.
[2020-09-19 16:11] LABS: ANTINUCLEAR ANTIBODIES DIRECT Negative (Negative)
== END 2020-09-19 10:26 | disposition home or self-care (01) | DRG 463 ==
LOC: ED 15:27 → MS3 09-18 07:10
PROVIDERS: Physician Assistant; Admitting Provider Internal Medicine; Emergency Provider Emergency Medicine; PCP Family Medicine; Visit Provider Internal Medicine
DX: N30.00 Acute cystitis without hematuria (principal); E87.1 Hypo-osmolality and hyponatremia; E86.0 Dehydration; F17.210 Nicotine dependence, cigarettes, uncomplicated; H10.9 Unspecified conjunctivitis; M25.511 Pain in right shoulder; M25.512 Pain in left shoulder; M25.521 Pain in right elbow; M25.522 Pain in left elbow; M25.532 Pain in left wrist; M25.531 Pain in right wrist; R62.7 Adult failure to thrive; R03.0 Elevated blood-pressure reading, without diagnosis of hypertension; R79.1 Abnormal coagulation profile; R53.1 Weakness
CPT/HCPCS: 36415; 70450; 71045; 72125; 80048; 80053; 81001; 82077; 82550; 83605; 84550; 85025; 85379; 85652; 86038; 86140; 86225; 86235; 86431; 87040; 87086; 87088; 93005; 93971; 97162; 97166; 99285; 99406; J7030; A4216

== ENCOUNTER 2020-10-07 07:04 | Emergency (ER) | payer MEDICAID, SELFPAY ==
[2020-09-17 17:52] VITALS: BMI 26.6
[2020-10-07 07:04] VITALS: BP 147/101; PULSE 116; RESP 18; TEMP 37; O2SAT 100; BMI 27.2
--- NOTE | 2020-10-07 07:17 | EX.ED.DYSGE1 ---
HPI History of Present Illness Chief Complaint: Allergic Reaction Informant: patient Narrative Narrative: 50-year-old male presents with rash on face and chest. Patient states he noticed a few red spots on his arm last night. When he got out of the shower this morning he has noted the rash on his chest and noticed that his face seemed red and his left ear swollen. He denies any changes to soaps lotions shampoos new clothing etc. He states it is noted that he has been taking prednisone as a taper since being discharged at the end of August from the hospital. He states that he was taking that for upper extremity pain and weakness. He states that they believe he might have rheumatoid arthritis. He also notes that he started taking naproxen and last week started an antifungal medication both topical and a pill. That he denies any other medicines. Denies any breathing difficulty. He states his head feels heavy. Unfortunately the patient is a rather poor historian cannot tell me the names of his antifungal medicines or the doctor is prescribing it. PFSH PFSH Medical History Arthritis Fracture of left shoulder Smoker Home Medications acetaminophen [Tylenol Extra Strength] 1,000 mg PO Q8H PRN #60 tab 09/19/20 [Rx Last Taken Unknown] erythromycin 1 applic RIGHT EYE 4X/DAY 6 Days #0 g 09/19/20 [Rx Last Taken Unknown] prednisone See Taper PO DAILY #30 tab 09/19/20 [Rx Last Taken Unknown] Allergy/AdvReac Type Severity Reaction Status Date / Time No Known Allergies Allergy Verified 10/07/20 07:06 Family History Mother Diabetes Father CVA (cerebral vascular accident) Diabetes Surgical History H/O shoulder surgery Social History household members: none housing: apartment Smoking Status: Current every day smoker tobacco type: cigarettes alcohol intake: current alcohol intake frequency: a few times a week details: 6 beers/week. ROS ROS ED Constitutional Constitutional ED: Denies chills or weight loss Eyes Eyes: Denies change in vision or diplopia ENT ENT ED: Denies ear pain, rhinorrhea or sore throat Cardiovascular Cardiovascular: Denies chest pain, orthopnea, palpitations or racing heartbeat Respiratory/Chest Respiratory/Chest: Denies cough, dyspnea or orthopnea Gastrointestinal Gastrointestinal: Denies abdominal pain, diarrhea, nausea or vomiting Genitourinary Genitourinary ED: Denies dysuria, hematuria or urinary frequency Musculoskeletal Musculoskeletal: Reports arthralgias; Denies myalgias Integumentary Reports rash; Denies abscess Neurologic Neurologic: Denies headache(s) or weakness Psychiatric Psychiatric: Denies anxiety, depression, suicidal ideation or suicidal thoughts Endocrine Endocrinology: Denies polydipsia, polyphagia or polyuria Allergic/Immunologic Allergic/Immunologic ED: Denies mouth swelling, tongue swelling or urticaria EXAM Physical Exam Const Vital Signs: 10/07/20 07:04 Temperature 98.6 F Temperature Source Temporal Pulse Rate 116 H Respiratory Rate 18 Blood Pressure 147/101 H Blood Pressure Mean 116 Pulse Ox 100 Oxygen Delivery Method Room Air Positive well nourished and well developed General Appearance ED: well developed HEENT Reports normocephalic, head/scalp atraumatic and moist mucous membranes Eyes PERRL and EOMs intact bilaterally Neck no lymphadenopathy, supple and no JVD Resp normal respiratory effort and clear to auscultation bilaterally Cardio regular rate, regular rhythm and no murmurs GI normal to inspection, nondistended, normoactive bowel sounds and non-tender Palpation: soft Back/Spine no CVA tenderness and normal ROM Extremity normal to inspection General Extremety ED: Negative for edema General Extremity: Negative for edema Neuro oriented x3 and CN's II-XII intact bilaterally Sensorium / Orientation: alert Motor Exam: strength 5/5 throughout Psych mental status grossly normal Mood & Affect: Negative for depressed or tearful Skin no wounds Skin Narrative: Patient has a erythematous discrete papular rash on his anterior chest. There are a few lesions on his arms. His face is erythematous his left ear appears mildly swollen. There is no intraoral lesions or swelling. No swelling of the face. MDM MDM MDM Narrative Medical decision making narrative: I advised the patient to stop his oral antifungal naproxen. He is now done with the prednisone taper. I will give him a dose of Kenalog. Recommend Benadryl. Follow-up with primary care if not improving return if worsening. Discharge Plan Triage Chief Complaint: Allergic Reaction ED Provider: David Cox Dx/Rx/DC Orders Clinical Impression: Allergic dermatitis Instructions: ED General Allergic Reactions Prescriptions: No Action erythromycin 5 mg/gram (0.5 %) Ointment 1 applic RIGHT EYE 4X/DAY 6 Days Qty: 0 RF: 0 prednisone 10 mg tablet See Taper mg PO DAILY Qty: 30 RF: 0 acetaminophen [Tylenol Extra Strength] 500 mg Tablet 1,000 mg PO Q8H PRN (Reason: Pain) Qty: 60 RF: 0 Primary Care Provider: Jes Ernandez Referrals: Jes Ernandez MD [Primary Care Provider] - 2 Days Activity Restrictions/Additional Instructions: I would recommend discontinuing the newer medications. I would also recommend Benadryl 25 mg every 8 hours. Please keep a journal of everything that you come in contact with during the next couple days to see if anything is new that you may have forgotten. Monitor breathing and swallowing. Return if worsening Disposition Disposition: Home, Self Care
[2020-10-07] MEDS: Triamcinolone Acetonide 40 MG/ML Vial 80 MG IM (07:28)
== END 2020-10-07 07:57 | disposition home or self-care (01) ==
LOC: ED 07:27
PROVIDERS: Emergency Provider Emergency Medicine; PCP Family Medicine
DX: L23.9 Allergic contact dermatitis, unspecified cause (principal); T39.315A Adverse effect of propionic acid derivatives, initial encounter; M19.90 Unspecified osteoarthritis, unspecified site; Z79.52 Long term (current) use of systemic steroids; F17.210 Nicotine dependence, cigarettes, uncomplicated; Z79.899 Other long term (current) drug therapy
CPT/HCPCS: 96372; 99282; A4216

== ENCOUNTER → 2021-12-29 | Outpatient (CLI) | payer MEDICAID, SELFPAY ==
--- NOTE | 2021-12-29 09:16 | RAD_ITS ---
STUDY: X-RAY CHEST REASON FOR EXAM: Male, 51 years old. CHEST PAIN WHEEZING TECHNIQUE: XR Chest 2 Views COMPARISON: 7 FINDINGS: There is no demonstrated pleural abnormality. Normal size heart. Normal mediastinum and rafa. Normal visualized pulmonary arteries. Normal visualized aortic arch and descending thoracic aorta. Normal visualized thoracic spine. Normal visualized ribs, clavicles, and shoulders. There is no demonstrated abnormality of the visualized soft tissue structures of the upper abdomen. RAD/Chest PA and Lateral IMPRESSION: There are no acute findings. Electronically Signed: Bean Bedolla MD at 19:25 EST ,
== END | disposition home or self-care (01) ==
PROVIDERS: PCP Family Medicine; Referring Provider Family Medicine; Visit Provider Family Medicine
DX: R06.2 Wheezing (principal)
CPT/HCPCS: 71046

== ENCOUNTER 2022-07-14 02:15 | Emergency (ER) | payer MEDICAID, SELFPAY ==
[2022-07-14] VITALS (8 sets, daily range): BP systolic 76–96; BP diastolic 46–62; PULSE 69–84; RESP 14–18; TEMP 36–36.6; O2SAT 94–100; BMI 20.2
--- NOTE | 2022-07-14 02:28 | CT_ITS ---
INDICATION: painless jaundice EXAMINATION: CT ABDOMEN AND PELVIS WITHOUT CONTRAST - CT Abdomen And Pelvis W/O Contrast Injection TECHNIQUE: Helically acquired images were obtained of the abdomen and pelvis without oral or IV contrast. A radiation dose optimization technique was used for this scan. IV Contrast dosage and agent: None. Oral contrast: None. RADIATION DOSAGE (If Supplied By Facility): CTDIvol = ( 6.37 ) mGy, DLP = ( 343.81 ) mGycm COMPARISON: FINDINGS: LOWER CHEST: Lung bases are clear. No cardiomegaly or pericardial effusion. LIVER: There is marketed decreased attenuation of the liver may represent hepatitis. There is moderate ascites. GALLBLADDER AND BILIARY TREE: No calcified gallstones. No gallbladder distension or wall edema. No intra- or extrahepatic biliary ductal dilation. PANCREAS: No focal cystic or solid mass. SPLEEN: Normal size without focal cystic or solid mass. ADRENAL GLANDS: No nodules. KIDNEYS AND URETERS: Normal renal size and position. No hydronephrosis. PERITONEUM: No ascites or free air. No other fluid collection. BOWEL: No evidence of acute appendicitis. No stomach or bowel distension. No focal inflammatory change. LYMPH NODES: No enlarged mesenteric or retroperitoneal lymph nodes. VESSELS: Aorta is non-dilated. URINARY BLADDER: Unremarkable. REPRODUCTIVE ORGANS: No pelvic masses. ABDOMINAL WALL: No discrete abdominal or pelvic wall hernia. BONES: No lytic or blastic abnormality. CT/Abdomen/Pelvis without Cont IMPRESSION: There is marketed decreased attenuation of the liver may represent hepatitis. There is moderate ascites. Electronically Signed: Miriam Oliva MD at 3:55 EDT ,
--- NOTE | 2022-07-14 02:29 | EDS_ITS ---
HPI History of Present Illness Chief Complaint: Weakness Detail of Chief Complaint: Generalized weakness. Jaundice. Informant: patient and EMS Onset/Context/Timing Onset: Days Context: Gradual Onset Timing: Continuous Current Severity: Moderate Maximum Severity: Moderate Narrative Narrative: 52-year-old male past medical history of arthritis. Denies any history of liver disease but drinks a bottle of rum daily and has for about 20 years. Said he quit drinking and smoking 12 days ago. He has been very weak at home and has had some falls due to weakness. Denies any injury. Denies any vomiting or fever. Denies any significant abdominal pain. [facility] was called today to bring him in and he realized he was jaundiced after they asked him about being yellow. He denies any recent hospitalization. He has not seen his primary care physician for over year. Prior similar symptoms: No Recent Illness/Hospitalization: No PFSH PFSH Medical History Arthritis Fracture of left shoulder Smoker Home Medications acetaminophen 500 mg tablet (Tylenol Extra Strength) 1,000 mg PO Q8H PRN Pain #60 tabs 09/19/20 [Rx Last Taken Unknown] erythromycin 5 mg/gram (0.5 %) eye ointment 1 applic RIGHT EYE 4X/DAY 6 days #0 grams 09/19/20 [Rx Last Taken Unknown] prednisone 10 mg tablet See Taper PO DAILY #30 tabs 09/19/20 [Rx Last Taken Unknown] Allergy/AdvReac Type Severity Reaction Status Date / Time No Known Allergies Allergy Verified 10/07/20 07:06 Family History Mother Diabetes Father CVA (cerebral vascular accident) Diabetes Surgical History H/O shoulder surgery Social History household members: none housing: apartment Smoking Status: Current every day smoker tobacco type: cigarettes alcohol intake: current alcohol intake frequency: a few times a week details: 6 beers/week. ROS ROS ED ROS Narrative Jaundice. Weakness. Review of Systems ROS Unobtainable: Denies due to encephalopathy Constitutional Constitutional ED: Denies chills or fever(s) Eyes Eyes: Denies blurry vision ENT ENT ED: Denies ear pain Cardiovascular Cardiovascular: Denies chest pain Respiratory/Chest Respiratory/Chest: Denies cough or dyspnea Gastrointestinal Gastrointestinal: Denies abdominal pain Genitourinary Genitourinary ED: Denies dysuria or hematuria Musculoskeletal Musculoskeletal: Denies arthralgias Integumentary Denies abscess Neurologic Neurologic: Denies headache(s) Psychiatric Psychiatric: Denies anxiety Endocrine Endocrinology: Denies cold intolerance Hematologic/Lymphatic Hematologic/Lymphatic: Reports none and easy bruising Allergic/Immunologic Allergic/Immunologic ED: Denies mouth swelling, tongue swelling or urticaria EXAM Physical Exam Narrative Exam Narrative: 52-year-old male cachectic, very thin, atrophied and extremely jaundiced. Initial blood pressure was 83/56. He is tolerating that well. He sitting upright in bed speaking. H EENT exam jaundiced. Scleral icterus. Dry mucous membranes. No trauma. Neck nontender. No lymphadenopathy. Lungs clear to auscultation. Heart regular rhythm rate about 75 no murmur. Chest wall nontender. Abdomen soft nontender. No peritoneal signs. Moving all 4 extremities. Very thin. Muscular atrophy. Nontender no deformity. Back he has some bruising on his left posterior rib area and right posterior rib area. There is no bony deformity. No significant back tenderness. Neurologically is awake and alert. Answering questions following commands. Moving all 4 extremities. Const Vital Signs: 07/14/22 02:16 07/14/22 02:39 07/14/22 02:41 Temperature 96.8 F L Temperature Source Temporal Pulse Rate 74 69 Respiratory Rate 18 14 Respiratory Effort Short of Breath Respiratory Pattern Normal Blood Pressure 83/56 L 76/57 L Blood Pressure Mean 65 63 Pulse Ox 94 Oxygen Delivery Method Room Air 07/14/22 03:16 Temperature Temperature Source Pulse Rate 72 Respiratory Rate 14 Respiratory Effort Respiratory Pattern Blood Pressure 80/46 L Blood Pressure Mean 57 Pulse Ox 100 Oxygen Delivery Method Room Air Positive cachectic; Negative for well nourished or obese Constitutional Narrative: Significant jaundice. Scleral icterus. General Appearance ED: cachectic; Negative for cyanotic or diaphoretic Nutritional Appearance: cachectic; Negative for obese HEENT Reports dry mucous membranes Negative for trauma or tenderness Mouth ED: Yes dry mucous membranes Mouth: dry mucous membranes Eyes PERRL and EOMs intact bilaterally General Eye ED: Yes scleral icterus; Negative for pale conjunctiva Neck no lymphadenopathy, supple and no JVD General: Negative for tenderness Lymph Lymphatic: Negative for other Chest Wall inspection of chest normal and palpation of chest normal Chest: Negative for other Resp normal respiratory effort and clear to auscultation bilaterally Effort and Inspection: Negative for retractions Auscultation: Negative for rales, rhonchi or wheezes Cardio regular rate, regular rhythm, S1 normal heart sound, S2 normal heart sound and no murmurs Rate: Negative for tachycardic Rhythm: Negative for abnormal rhythm GI normal to inspection, nondistended, normoactive bowel sounds, non-tender, non- distended and no masses Inspection: Negative for abdominal distention Auscultation: normoactive bowel sounds Palpation: soft; Negative for tender or guarding Back/Spine no CVA tenderness Back/Spine Narrative: Bruising on his posterior rib cage. Nontender. No deformity. General Back: Negative for CVA tenderness Cervical Spine: Negative for cervical spine tenderness Thoracic Spine / Upper Back: Negative for thoracic spinal tenderness Lumbar Spine / Lower Back: Negative for lumbar spinal tenderness Extremity Negative for normal to inspection Extremity Narrative: Cachectic. Thin. Muscular atrophy. Jaundice. General Extremety ED: Negative for edema or tenderness General Extremity: Negative for edema Neuro oriented x3 and CN's II-XII intact bilaterally Sensorium / Orientation: alert; Negative for orientation impaired, lethargic or stuporous Motor Exam: strength 5/5 throughout Psych mental status grossly normal Appearance: Negative for other Attitude: No agitated Mood & Affect: Negative for depressed, anxious or tearful Skin no rashes or lesions noted and no wounds General Skin Exam: jaundice Lesions: No lesion noted Rashes: No rashes noted Trauma: Negative for abrasion Wounds: Negative for wounds noted MDM MDM MDM Narrative Medical decision making narrative: 52-year-old male with long history of alcohol abuse weak, hypotensive and extremely jaundiced. Most likely from liver failure may be from alcohol abuse versus other etiologies of painless jaundice. Screening labs will be obtained along with a PT/INR PTT due to his bruising. Suspected liver disease. CAT scan of his abdomen will be obtained to rule out a pancreatic or liver mass. Or biliary obstruction. He will be treated with IV fluids for his hypotension. Repeat exam at 4 AM unchanged. Patient's received a liter normal saline. His current blood pressure is about 90/50. We will get a second liter. Due to his liver failure and acute renal failure hospital assignment discussed and the patient needs a larger facility to treat his multiple acute medical problems. Patient is received a liter normal saline however will receive a second and possibly a third. He has severe dehydration, acute renal failure and acute liver failure. Have already spoken [facility] transfer line. They have accepted the patient or awaiting a bed. We will determine mode of transportation once a bed is available. History & Record Review Discussion w/independent historian: Patient Lab Data Attestation: I reviewed the patient's lab results. Lab results narrative: CBC shows no elevated white count of 28,200. H&H 12.4 and 33.8. Platelet count is low at 99,000. Patient's PT/INR elevated at 24 and 2.2 consistent with his liver disease. PTT is elevated at 73. Electrolytes show sodium 127. A gap of 28. BUN is 143 creatinine is 8.61 consistent with acute renal failure. Glucose is 80. Liver enzymes show total bilirubin 24.8. AST at 317. A ALT of 80 and alk phos of 578. His lipase is only mildly elevated 87. Labs are consistent with acute liver failure and acute renal failure. Labs are significantly changed and much worse than ones from about 2 years ago in 2020. Labs: Laboratory Results - last 24 hr 07/14/22 07/14/22 07/14/22 02:40 02:40 02:40 WBC 28.2 H RBC 3.39 L Hgb 12.4 L Hct 33.8 L MCV 99.7 H MCH 36.6 H MCHC 36.7 H RDW Std Deviation 55.8 H RDW Coeff of Shmuel 15.8 H Plt Count 99 L MPV 12.8 H Neut % (Auto) Not Reportable Absolute Neuts (auto) 22.9 H Absolute Lymphs (auto) 2.82 Total Counted 100 Neutrophils % (Manual) 80 H Band Neutrophils % 1 Lymphocytes % (Manual) 10 L Monocytes % (Manual) 1 Metamyelocytes % 6 H Myelocytes % 2 H Diff Path Review May foll Platelet Estimate SLT DEC Plt Morphology Comment LARGE Anisocytosis 1+ Macrocytosis 1+ PT 24.4 H INR 2.2 APTT 73.1 H Sodium 127 L Potassium 4.2 Chloride 91 L Carbon Dioxide 8.0 L* Anion Gap 28 H BUN 143 H* Creatinine 8.61 H* Estim Creat Clear Calc 8.23 Est GFR (MDRD) Af Amer 8 L Est GFR (MDRD) Non-Af 7 L BUN/Creatinine Ratio 16.6 Glucose 80 Calcium 7.8 L Total Bilirubin 24.80 H* AST 317 H ALT 80 H Alkaline Phosphatase 578 H Total Protein 5.9 L Albumin 1.3 L Globulin 4.6 H Albumin/Globulin Ratio 0.3 L Lipase 87 H Radiography Diagnostic Testing: Clinical Impression(s) from Imaging Studies Abdomen/Pelvis CT 07/14/22 02:28 IMPRESSION: There is marketed decreased attenuation of the liver may represent hepatitis. There is moderate ascites. Electronically Signed: Miriam Oliva MD at 3:55 EDT Reading Location ID and State: [facility] / [place] Tel , Service support , Critical Care Time Critical Care Time: Yes Critical care time (excluding procedures): 30-74 minutes, Including time spent:, Discussing w/Patient &/or Family/Gasoline Finisher, Discussing w/Consultants, Arranging Admission or Transfer, Performing Direct Patient Care at Bedside and - (40 min) Discharge Plan Triage Chief Complaint: Weakness ED Provider: Eulalio Osorio Dx/Rx/DC Orders Clinical Impression: Acute hepatic failure, Acute renal failure, Jaundice, Coagulopathy, Hypotension, Acute dehydration, Acute hyponatremia Prescriptions: No Action erythromycin 5 mg/gram (0.5 %) Ointment 1 applic RIGHT EYE 4X/DAY 6 Days Qty: 0 0RF prednisone 10 mg tablet See Taper PO DAILY Qty: 30 0RF Taper: Prednisone Taper 40 mg WITH BREAKFAST for 3 Days and 0 Hour 30 mg WITH BREAKFAST for 3 Days and 0 Hour 20 mg WITH BREAKFAST for 3 Days and 0 Hour 10 mg WITH BREAKFAST for 3 Days and 0 Hour Rx Instructions: 40 mg for 3 days, 30 mg for 3 days, 20 mg for 3 days, 10 mg for 3 days. acetaminophen [Tylenol Extra Strength] 500 mg Tablet 1,000 mg PO Q8H PRN (Reason: Pain) Qty: 60 0RF Primary Care Provider: Qasim Contreras Referrals: Qasim Contreras MD [[facility]] - Disposition Disposition: [facility]
[2022-07-14] MEDS: 0.9% Normal Saline 1,000 ML 1000 ML IV (02:35)
--- NOTE | 2022-07-14 02:40 | ED.RN ---
pt reports he doesn't take any RX meds because they do not work
[2022-07-14 02:51] LABS: Hematocrit 33.8 % (40-54); Hemoglobin 12.4 g/dL (13.0-16.5); Mean Corp Hgb Conc 36.7 g/dL (32-36); Mean Corpuscular Hgb 36.6 pg (27.0-32.0); Mean Corpuscular Volume 99.7 fL (80-94); Mean Platelet Vol. 12.8 fl (6.2-12.0); POSITIVE COUNT YES; POSITIVE DIFFERENTIAL YES; POSITIVE MORPHOLOGY YES; Platelet Count 99 K/mm3 (150-450); RBC Distribution Width CV 15.8 % (11.6-14.6); RBC Distribution Width SD 55.8 fl (35.1-43.9); Red Blood Count 3.39 M/mm3 (4.6-6.2); White Blood Count 28.2 K/mm3 (4.4-11.0)
[2022-07-14 02:56] LABS: Differential Indicated MANUAL DIFF
[2022-07-14 03:02] LABS: International Normalized Ratio 2.2; Prothrombin Time (Protime)PT. 24.4 SECONDS (11.7-14.9)
[2022-07-14 03:03] LABS: Partial Thromboplast Time 73.1 Seconds (24.1-36.2)
[2022-07-14 03:10] LABS: Total Cells Counted 100 (MANUAL DIFF)
[2022-07-14 03:12] LABS: Glucose 80 mg/dL (74-106)
[2022-07-14 03:13] LABS: ALB/GLOB Ratio 0.3 RATIO (0.9-2.4); AST(SGOT) 317 U/L (15-37); Alanine Aminotransfer ALT/SGPT 80 U/L (16-61); Albumin, Serum 1.3 g/dL (3.2-5.0); Alkaline Phosphatase 578 U/L (45-117); BUN/Creat Ratio 16.6 RATIO (10-20); Calcium,Total 7.8 mg/dL (8.5-10.1); EST Glomerular Filtration Rate 7 mL/min (>60); Est Glom Filt Rate - Afr Amer 8 mL/min (>60); Estimated Creatinine Clearance 8.23 ml/min; Globulin 4.6 g/dL (2.2-4.2); Lipase 87 U/L (13-75); Protein, Total 5.9 g/dL (6.4-8.2)
[2022-07-14 03:14] LABS: Anion Gap 28 (5-15); Chloride 91 mmol/L (98-107); Potassium 4.2 mmol/L (3.5-5.1); Sodium Level 127 mmol/L (136-145)
[2022-07-14 03:15] LABS: BUN 143 mg/dL (7-18)
[2022-07-14 03:16] LABS: Creatinine, Serum 8.61 mg/dL (0.70-1.30)
[2022-07-14 03:19] LABS: Metamyelocyte 6 % (0-1); Myelocyte 2 % (0-0); Neutrophil-Band 1 % (0-5); Neutrophil-Segmented 80 % (47-70)
[2022-07-14 03:20] LABS: Anisocytosis 1+; Lymphocyte 10 % (19-41); Monocyte 1 % (0-10); Platelet Estimate SLT DEC (ADEQ); Platelet Morphology LARGE
[2022-07-14 03:21] LABS: Absolute Lymphocyte Count 2.82 X10^3/uL (0.83-4.51); Absolute Neutrophil Count 22.9 X10^3/uL (2.0-7.7); Lymphocyte # 2.82 X10^3/ul (0.83-4.51); Macrocytosis 1+; Neutrophil # 22.87 X10^3/uL (2.7-7.7)
[2022-07-14] MEDS: 0.9% Normal Saline 1,000 ML 999 ML IV (04:12)
--- NOTE | 2022-07-14 07:07 | NURSING ---
[facility] MAIN G50 BED 9
[2022-07-14 12:08] LABS: Pathologist Review Reviewed
== END 2022-07-14 08:15 | disposition short-term general hospital (02) ==
PROVIDERS: Emergency Provider Emergency Medicine; PCP Family Medicine; Visit Provider Emergency Medicine
DX: K72.00 Acute and subacute hepatic failure without coma (principal); N17.9 Acute kidney failure, unspecified; F17.210 Nicotine dependence, cigarettes, uncomplicated; E87.1 Hypo-osmolality and hyponatremia; E86.0 Dehydration; I95.9 Hypotension, unspecified
CPT/HCPCS: 74176; 80053; 83690; 85025; 85610; 85730; 96360; 96361; 99285; J7030; A4216